=== PATIENT | male | born 1990 | race Caucasian/White ===

== ENCOUNTER 2016-06-21 12:15 | Inpatient (IN) | payer BC, MEDICAID ==
[~2016-06-21] VITALS: Ht 172.7 cm; Wt 61.5 kg
[~2016-06-21 12:15] MED LIST: ACETAMINOPHEN 1,000 MG/100 ML IV ONE; DILAUDID 1 MG/ML AMP IV ONE; FENTANYL 100 MCG/2 ML AMP IV ONE; GLYCOPYRROLATE 0.2 MG/ML VIAL IV ONE; LIDOCAINE 2% SYR 5 ML IV ONE; NEOSTIGMINE 10 MG/10 ML VIAL IV ONE; ONDANSETRON 4 MG VIAL IV PUSH ONE; PROPOFOL 20 ML PER ML IV ONE; ROCURONIUM 50 MG VIAL IV ONE; SUCCINYLCHOLINE 20 MG/ML VL IV ONE
[2016-06-21] MEDS ORDERED: OPTIRAY 350 100 ML VIAL HMH IV ONE (12:16)
[2016-06-21] MEDS ORDERED: SODIUM CHLORIDE 0.9% 1,000 ML ONE (15:43)
[2016-06-21] MEDS ORDERED: MORPHINE 2 MG/ML SYR IV PRN (16:40)
[2016-06-21 18:05] VITALS: BP_SYST 138; RESP 16; TEMP 97.9
[2016-06-21] MEDS ORDERED: Flu Vaccine Quadrivalent 60 MCG/0.5 ML IM.VACC ONE (18:35)
[2016-06-21] MEDS ORDERED: PNEUMO VAC 25 MCG/0.5 ML VL IM.VACC ONE (18:35)
[2016-06-21] MEDS: MORPHINE 2 MG/ML SYR IV PRN ×2 (18:41→21:33)
[2016-06-21 18:47] VITALS: BMI 20.6
[2016-06-21 19:43] VITALS: BP_SYST 140; RESP 18; TEMP 98.5
[2016-06-21] MEDS ORDERED: MISSING DOSE XX ONE (20:55)
[2016-06-21] MEDS: SODIUM CHLORIDE 0.9% 1,000 ML IV SCH (21:33)
[2016-06-21] MEDS: FAMOTIDINE 20 MG INJ IV SCH (21:34)
[2016-06-21 23:04] VITALS: BP_SYST 143; RESP 18; TEMP 98.4
[2016-06-22] VITALS (21 sets, daily range): BP systolic 127–164; RESP 9–18; TEMP 97.4–99.3
[2016-06-22] MEDS: MORPHINE 4 MG/ML SYR IV PRN ×3 (00:29→07:28)
[2016-06-22] MEDS: ONDANSETRON 4 MG VIAL IV PRN ×2 (01:50→06:05)
[2016-06-22] MEDS: MORPHINE 2 MG/ML SYR IV PRN ×4 (05:11→23:32)
[2016-06-22] MEDS: SODIUM CHLORIDE 0.9% 1,000 ML IV SCH ×3 (05:12→23:42)
[2016-06-22] MEDS: FAMOTIDINE 20 MG INJ IV SCH ×2 (09:32→20:45)
[2016-06-22] MEDS ORDERED: CEFAZOLIN 2,000 MG in SODIUM CHLORIDE 0.9% 100 ML IV ONE (09:40)
[2016-06-22] MEDS ORDERED: OXYCODONE 5 MG TAB PO PRN (12:20)
[2016-06-22] MEDS ORDERED: ONDANSETRON 4 MG VIAL IV PRN ×2 (12:20→13:55)
[2016-06-22] MEDS ORDERED: MORPHINE 4 MG/ML SYR IV PRN (12:20)
[2016-06-22] MEDS ORDERED: MEPERIDINE 25 MG/ML IV PRN (12:20)
[2016-06-22] MEDS ORDERED: MORPHINE 2 MG/ML SYR IV PRN (12:20)
[2016-06-22] MEDS ORDERED: SALINE FLUSH 10 ML FLUSH PRN (13:55)
[2016-06-22] MEDS ORDERED: SODIUM CHLORIDE 0.9% 1,000 ML IV SCH (13:55)
[2016-06-22] MEDS: DILAUDID 1 MG/ML AMP IV PRN ×2 (14:17→14:23)
[2016-06-22] MEDS: MORPHINE 50 MG/50 ML PCA BAG IV SCH ×2 (14:33→21:59)
[2016-06-22] MEDS: SALINE FLUSH 10 ML FLUSH SCH (20:00)
[2016-06-22] MEDS ORDERED: FAMOTIDINE 20 MG INJ IV SCH (20:00)
[2016-06-23] MEDS: MORPHINE 2 MG/ML SYR IV PRN ×6 (03:09→21:35)
[2016-06-23 03:17] VITALS: BP_SYST 137; RESP 16; TEMP 98.5
[2016-06-23] MEDS: SODIUM CHLORIDE 0.9% FLUSH BAG 500 ML IV SCH (05:23)
[2016-06-23 07:51] VITALS: BP_SYST 142; RESP 16; TEMP 99
[2016-06-23] MEDS: SODIUM CHLORIDE 0.9% 1,000 ML IV SCH ×2 (08:38→17:53)
[2016-06-23] MEDS: SALINE FLUSH 10 ML FLUSH SCH ×2 (08:50→21:37)
[2016-06-23] MEDS: FAMOTIDINE 20 MG INJ IV SCH ×2 (08:50→21:35)
[2016-06-23] MEDS: MORPHINE 50 MG/50 ML PCA BAG IV SCH ×2 (10:20→21:46)
[2016-06-23 11:17] VITALS: BP_SYST 146; RESP 12; TEMP 97.4
[2016-06-23] MEDS: KETOROLAC 15 MG/ML VIAL IV PRN ×2 (13:01→21:36)
[2016-06-23 15:12] VITALS: BP_SYST 150; RESP 16; TEMP 97.1
[2016-06-23 19:36] VITALS: BP_SYST 133; RESP 16; TEMP 97.6
[2016-06-23 23:57] VITALS: BP_SYST 130; RESP 16; TEMP 98.1
[2016-06-24] MEDS: MORPHINE 2 MG/ML SYR IV PRN ×4 (00:02→11:42)
[2016-06-24 03:35] VITALS: BP_SYST 135; RESP 16; TEMP 97.8
[2016-06-24] MEDS: SODIUM CHLORIDE 0.9% 1,000 ML IV SCH ×3 (03:41→20:03)
[2016-06-24] MEDS: SODIUM CHLORIDE 0.9% FLUSH BAG 500 ML IV SCH (04:55)
[2016-06-24] MEDS: KETOROLAC 15 MG/ML VIAL IV PRN (05:35)
[2016-06-24 07:22] VITALS: BP_SYST 129; RESP 16; TEMP 98
[2016-06-24] MEDS: SALINE FLUSH 10 ML FLUSH SCH ×2 (08:19→20:00)
[2016-06-24] MEDS: FAMOTIDINE 20 MG INJ IV SCH ×2 (08:20→20:02)
[2016-06-24 10:42] VITALS: BP_SYST 128; RESP 16; TEMP 98
[2016-06-24] MEDS: MORPHINE 50 MG/50 ML PCA BAG IV SCH ×2 (14:28→23:58)
[2016-06-24 14:50] VITALS: BP_SYST 138; RESP 16; TEMP 97.3
[2016-06-24 19:24] VITALS: BP_SYST 145; RESP 16; TEMP 97.3
[2016-06-25] VITALS (7 sets, daily range): BP systolic 129–150; RESP 14–16; TEMP 97.7–98.6
[2016-06-25] MEDS: SODIUM CHLORIDE 0.9% 1,000 ML IV SCH (01:15)
[2016-06-25] MEDS: SODIUM CHLORIDE 0.9% FLUSH BAG 500 ML IV SCH (05:32)
[2016-06-25] MEDS: FAMOTIDINE 20 MG INJ IV SCH ×2 (07:45→20:15)
[2016-06-25] MEDS: SALINE FLUSH 10 ML FLUSH SCH ×2 (07:49→20:00)
[2016-06-25] MEDS ORDERED: SODIUM CHLORIDE 0.9% 1,000 ML IV SCH (09:30)
[2016-06-25] MEDS: MORPHINE 50 MG/50 ML PCA BAG IV SCH (18:39)
[2016-06-26] VITALS (7 sets, daily range): BP systolic 141–157; RESP 14–16; TEMP 97.6–98.8
[2016-06-26] MEDS: SODIUM CHLORIDE 0.9% FLUSH BAG 500 ML IV SCH ×2 (06:00→21:27)
[2016-06-26] MEDS: SALINE FLUSH 10 ML FLUSH SCH ×4 (08:00→20:53)
[2016-06-26] MEDS: FAMOTIDINE 20 MG INJ IV SCH (08:18)
[2016-06-26] MEDS ORDERED: SALINE FLUSH 10 ML FLUSH PRN (11:35)
[2016-06-26] MEDS ORDERED: SODIUM CHLORIDE 0.9% FLUSH BAG 500 ML IV PRN (11:35)
[2016-06-26] MEDS: ONDANSETRON 4 MG VIAL IV PRN (18:17)
[2016-06-27] MEDS: ONDANSETRON 4 MG VIAL IV PRN ×2 (02:19→06:34)
[2016-06-27 04:31] VITALS: BP_SYST 147; RESP 16; TEMP 97.9
[2016-06-27 07:14] VITALS: BP_SYST 142; RESP 16; TEMP 97.8
[2016-06-27] MEDS: SALINE FLUSH 10 ML FLUSH SCH ×2 (07:46→08:39)
[2016-06-27 10:54] VITALS: BP_SYST 133; RESP 14; TEMP 98.8
[2016-06-27 13:25] VITALS: BP_SYST 133; RESP 14; TEMP 98.8
== END 2016-06-27 13:46 | disposition home or self-care (01) | DRG 337 ==
LOC: ENRESERVDT → ENRESERVTM → ER 12:15 → EMR 16:42 → 4NT 18:05 → 5THE 06-22 15:02
PROVIDERS: ADMIT Surgery; ATTEND Surgery
PROC: 0DNV0ZZ Release Mesentery, Open Approach (ICD-10-PCS; principal; 2016-06-22 12:43)
DX: K56.5 Intestinal adhesions [bands] with obstruction (postinfection) (principal)
CPT/HCPCS: 36415; 74020; 74177; 80048; 80053; 81003; 83690; 85025; 94762; 94799; 96360